=== PATIENT | female | born 1990 | race Caucasian/White ===

== ENCOUNTER 2019-04-27 22:00 | Emergency (ER) | payer MEDICAID ==
[~2019-04-27] VITALS: Ht 170.2 cm; Wt 65.9 kg
--- NOTE | 2019-04-27 22:16 | NUR ---
THIS IS A 28 YO F W/ C/O CHEST TIGHTNESS, SOB AND HIVES ON HANDS AND NECK THAT STARTED TODAY AFTER SPRAYING NEW PERFUME. PT REPORTS TAKING BENADRYL 1 HOUR AGO. PT IS RESTING ON GURNEY CONVERSING IN FULL SENTENCES W/O DIFFICULTY. NADN. PT IS TACHYCARDIC. OTHER VS WDL. PT CONNECTED TO MONITORING. DR. FLORES IN ROOM. AWAITING ORDERS.
[2019-04-27] MEDS ORDERED: DEXAMETHASONE 4 MG TABLET ONE (22:20)
--- NOTE | 2019-04-27 22:23 | NUR ---
PT MEDICATED PER EMAR. CALL LIGHT IN REACH.
[2019-04-27] MEDS ORDERED: DEXAMETHASONE 4 MG TABLET PO ONE (22:30)
[2019-04-27 23:07] VITALS: BP 128/61
--- NOTE | 2019-04-27 23:07 | NUR ---
Patient given discharge instructions and they have confirmed that they understand the instructions. Patient ambulatory with steady gait.
== END 2019-04-27 23:08 | disposition home or self-care (01) ==
LOC: ED 22:43
DX: T78.49XA Other allergy, initial encounter (principal); R21 Rash and other nonspecific skin eruption; X58.XXXA Exposure to other specified factors, initial encounter
CPT/HCPCS: 99283

== ENCOUNTER 2020-01-22 18:07 | Emergency (ER) | payer MEDICAID ==
[~2020-01-22] VITALS: Ht 170.2 cm; Wt 68.2 kg
--- NOTE | 2020-01-22 18:33 | NUR ---
PT. IS A & O X 4 WITH GCS OF 15 WITH C/O URINARY URGENCY, FREQUENCY AND BURNING THAT BEGAN TODAY. PT. STATES THE PAIN RADIATES UP ABOVE HER UMBILLICUS WELL BELOW. PT. DENIES FLANK PAIN OR BLOOD IN HER URINE. PT. DENIES C/O VAGINAL DISCHARGE. LUNGS ARE CTA THROUGHOUT. CAP REFILL IS BRISK, LESS THAN 2 SECONDS. PT.'S ABD. IS SOFT AND NON-TENDER WITH BS + X 4 QUADS. PT.'S PULSES ARE + 2 THROUGHOUT. PT. IS RESTING WITH A WARM BLANKET IN PLACE. SIDERAILS ARE UP X 2 WITH THE CALL LIGHT IN PLACE. UA COLLECTED AND TAKEN TO THE LAB.
[2020-01-22] MEDS ORDERED: PHENAZOPYRIDINE 200 MG TABLET ONE (18:41)
[2020-01-22 18:56] LABS: HCG UR SG 1.003 (1.003-1.030); MICROSCOPIC AUTO
[2020-01-22] MEDS ORDERED: PHENAZOPYRIDINE 200 MG TABLET PO ONE (19:00)
--- NOTE | 2020-01-22 20:44 | NUR ---
PT. STATES RELIEF FROM PYRIDIUM. VSS. PT. WAS GIVEN DISCHARGE INSTRUCTIONS AND SCRIPTS WITH UNDERSTANDING VERBALIZED ALONG WITH WILLINGNESS TO COMPLY. PT. WAS AMBULATORY TO DISCHARGE WITH HER .
[2020-01-22 20:45] VITALS: BP 108/49
== END 2020-01-22 20:47 | disposition home or self-care (01) ==
LOC: ED 19:13
DX: N30.00 Acute cystitis without hematuria (principal)
CPT/HCPCS: 81001; 81025; 87077; 87086; 87186; 99283

== ENCOUNTER 2020-04-02 11:10 | Emergency (ER) | payer MEDICAID ==
[~2020-04-02] VITALS: Ht 170.2 cm; Wt 66.0 kg
--- NOTE | 2020-04-02 11:30 | NUR ---
Pt in restroom giving UA sample, then back to room. Changed into gown, placed on bedside monitor, warm blanket provided, and call light in reach. Pt's S.O. at bedside with her at this time. UA sample sent to lab, awaiting orders at this time.
[2020-04-02] MEDS ORDERED: BUPR1FIL5 PO (11:36)
--- NOTE | 2020-04-02 11:42 | NUR ---
MD at bedside for exam at this time.
--- NOTE | 2020-04-02 11:52 | NUR ---
Orders placed for UA/urine HCG and collected in computer now. UA sample already sent earlier.
[2020-04-02 12:12] LABS: HCG UR SG 1.006 (1.003-1.030); MICROSCOPIC AUTO
[2020-04-02] MEDS ORDERED: NITROFURANTOIN (MACROBID) 100 MG CAPSULE PO ONE (12:30)
[2020-04-02] MEDS ORDERED: PHENAZOPYRIDINE 200 MG TABLET PO ONE (12:30)
[2020-04-02] MEDS ORDERED: PHENAZOPYRIDINE 200 MG TABLET ONE (13:14)
--- NOTE | 2020-04-02 13:45 | NUR ---
Pt given both meds PO as ordered and d/c instructions. Pt states understanding and is ambulatory out of dept with S.O. at this time.
[2020-04-02 14:12] VITALS: BP 111/56
== END 2020-04-02 14:14 | disposition home or self-care (01) ==
LOC: ED 13:46
DX: N30.00 Acute cystitis without hematuria (principal); R10.30 Lower abdominal pain, unspecified; F17.200 Nicotine dependence, unspecified, uncomplicated; Z98.51 Tubal ligation status
CPT/HCPCS: 81001; 81025; 87086; 99283

== ENCOUNTER 2020-09-07 21:59 | Emergency (ER) | payer MEDICAID ==
[~2020-09-07] VITALS: Ht 170.2 cm; Wt 68.9 kg
[~2020-09-07 21:59] MED LIST: BUPR1FIL5 PO
[2020-09-07] MEDS ORDERED: FAMOTIDINE 20 MG TABLET ONE (22:44)
[2020-09-07] MEDS ORDERED: FAMOTIDINE 20 MG TABLET PO ONE (23:00)
--- NOTE | 2020-09-07 23:09 | NUR ---
LATE ENTRY DUE TO PT CARE. PT CAME INTO ED WITH C/O OF ALLERGIC REACTION AND HEART PALPITATION DUE TO ANXIETY. PT TOOK BENADRYL AT HOME AND DOES NOT APPEAR TO BE ANAPHYLAXIS. PT SKIN DOES APPEAR REDDENED GENERALIZED OVER BODY. PT ACCOMPANIED BY . PT IN NAD, BREATHING EVEN AND UNLABORED, A&OX4 ATTACHED TO CARD/SP02/BP MONITORS. VSS. BED IN LOW POSITION. CALL LIGHT ON LAP. WCTM
--- NOTE | 2020-09-07 23:13 | NUR ---
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 CURRENTLY ON 7TH DAY OF AMOXICILLIN FOR EARACHE. STATES SHE HAD PAPRIKA WHICH IS DIFFERENT FROM BEFORE.
[2020-09-07 23:22] VITALS: BP 108/47
--- NOTE | 2020-09-07 23:47 | NUR ---
Patient/Caregiver given discharge instructions and they have confirmed that they understand the instructions. Patient ambulatory with steady gait. NAD, all questions answered appropriately, denies additional needs at this time. No personal belongings left in room after discharge.
== END 2020-09-07 23:48 | disposition home or self-care (01) ==
LOC: ED 22:29
DX: T78.40XA Allergy, unspecified, initial encounter (principal); R21 Rash and other nonspecific skin eruption; R94.31 Abnormal electrocardiogram [ECG] [EKG]
CPT/HCPCS: 93005; 99283; J7512

== ENCOUNTER 2020-10-04 17:53 | Emergency (ER) | payer MEDICAID ==
[~2020-10-04] VITALS: Ht 170.2 cm; Wt 70.6 kg
[2020-10-04] MEDS ORDERED: DIPHENHYDRAMINE 50 MG/ML, 1ML IVPush ONE (18:30)
[2020-10-04] MEDS ORDERED: methylPREDNISolone SOD SUCC 125 MG/2 ML IVPush ONE (18:30)
[2020-10-04] MEDS ORDERED: FAMOTIDINE 20 MG/2 ML IVPush ONE (18:30)
[2020-10-04] MEDS ORDERED: FAMOTIDINE 20 MG/2 ML ONE (18:33)
[2020-10-04] MEDS ORDERED: DIPHENHYDRAMINE 50 MG/ML, 1ML ONE (18:33)
[2020-10-04] MEDS ORDERED: methylPREDNISolone SOD SUCC 125 MG/2 ML ONE (18:33)
--- NOTE | 2020-10-04 18:44 | NUR ---
WITH RE-ASSESSMENT NO CHANGES. MEDICATED PER EMAR
[2020-10-04 19:02] VITALS: BP 133/87
--- NOTE | 2020-10-04 19:02 | NUR ---
With reassessment "i feel way better. my throat is less tight & my skin is way less red/itchy." Report to Feli PHILLIPS
--- NOTE | 2020-10-04 19:09 | NUR ---
pt states feeling much better. rr even non labored. speaking in full sentances. ambulatory to restroom c steady gait. family at .
== END 2020-10-04 19:49 | disposition home or self-care (01) ==
LOC: ED 18:23
DX: L50.0 Allergic urticaria (principal); R10.9 Unspecified abdominal pain; R00.0 Tachycardia, unspecified
CPT/HCPCS: 96374; 96375; 99284; J1200; J2930